=== PATIENT | male | born 1970 | race African-American/Black ===

== ENCOUNTER 2021-01-30 12:38 | Emergency (ER) | payer SELFPAY ==
[~2021-01-30] VITALS: Ht 177.8 cm; Wt 77.0 kg
[2021-01-30] MEDS ORDERED: LIDOCAINE HCL/EPINEPHRINE 1%-EPI 1:100,000 20 ML VIAL INFIL ONE (15:00)
[2021-01-30] MEDS ORDERED: TETANUS, DIPHTHERIA, PERTUSSIS VAC/PF 0.5ML (>7YR OLD) IM ONE (15:00)
[2021-01-30] MEDS ORDERED: ACETAMINOPHEN 325MG TABLET PO ONE (15:00)
[2021-01-30] MEDS ORDERED: BACITRACIN ZINC OINT UDPKT TOP ONE (15:00)
[2021-01-30] MEDS ORDERED: CEPH500C2 MT (16:44)
[2021-01-30] MEDS ORDERED: BO1 TP (16:44)
[2021-01-30] MEDS ORDERED: IBUP-2028 MT (16:45)
[2021-01-30 17:06] VITALS: BP 129/86
== END 2021-01-30 17:08 | disposition home or self-care (01) ==
LOC: ER 12:54
DX: S01.01XA Laceration without foreign body of scalp, initial encounter (principal); X58.XXXA Exposure to other specified factors, initial encounter; Y93.89 Activity, other specified; Y92.89 Other specified places as the place of occurrence of the external cause; Y99.8 Other external cause status
CPT/HCPCS: 12002; 90471; 90715; 99283; A4217; J3490; Z7610

== ENCOUNTER 2021-02-02 07:02 | Emergency (ER) | payer SELFPAY ==
[~2021-02-02] VITALS: Ht 185.4 cm; Wt 100.0 kg
[~2021-02-02 07:02] MED LIST: BO1 TP; CEPH500C2 MT; IBUP-2028 MT
[2021-02-02 07:40] VITALS: BP 120/78
== END 2021-02-02 07:40 | disposition home or self-care (01) ==
LOC: ER 07:08
DX: Z48.00 Encounter for change or removal of nonsurgical wound dressing (principal)
CPT/HCPCS: 99281; Z7610

== ENCOUNTER 2021-02-12 07:54 | Emergency (ER) | payer SELFPAY ==
[~2021-02-12] VITALS: Ht 175.3 cm; Wt 80.0 kg
[2021-02-12] MEDS ORDERED: IBUPROFEN 800MG TABLET PO ONE (09:00)
[2021-02-12] MEDS ORDERED: METH500T6 MT (09:45)
[2021-02-12 10:16] VITALS: BP 155/98
== END 2021-02-12 10:17 | disposition home or self-care (01) ==
LOC: ER 07:54
DX: Z48.02 Encounter for removal of sutures (principal); S01.01XD Laceration without foreign body of scalp, subsequent encounter; M54.40 Lumbago with sciatica, unspecified side; V43.52XD Car driver injured in collision with other type car in traffic accident, subsequent encounter
CPT/HCPCS: 70450; 72100; 99284; Z7610

== ENCOUNTER 2021-02-15 06:34 | Emergency (ER) | payer SELFPAY ==
[~2021-02-15] VITALS: Ht 175.3 cm; Wt 91.0 kg
[~2021-02-15 06:34] MED LIST changes: +METH-773 MT
[2021-02-15 07:24] VITALS: BP 162/128
[2021-02-15] MEDS ORDERED: TOPUD PO (08:19)
[2021-02-15] MEDS ORDERED: ACETAMINOPHEN 325MG TABLET PO ONE (08:30)
== END 2021-02-15 08:29 | disposition home or self-care (01) ==
LOC: ER 06:34
DX: Z48.00 Encounter for change or removal of nonsurgical wound dressing (principal)
CPT/HCPCS: 99282

== ENCOUNTER 2021-02-24 08:24 | Emergency (ER) | payer SELFPAY ==
[~2021-02-24] VITALS: Ht 185.4 cm; Wt 100.0 kg
[~2021-02-24 08:24] MED LIST changes: +TOPUD PO
[2021-02-24 08:31] VITALS: BP 162/102
== END 2021-02-24 09:13 | disposition home or self-care (01) ==
LOC: ER 08:34
DX: Z48.02 Encounter for removal of sutures (principal)
CPT/HCPCS: 99281; Z7610